=== PATIENT | female | born 1985 | race Caucasian/White ===

== ENCOUNTER 2019-07-13 07:03 | Day surgery (SDC) | payer OTHER, BC ==
[~2019-07-13 07:03] MED LIST: Lactated Ringers 1,000 ML IV SCH
[2019-07-13] MEDS ORDERED: Versed 2 MG/2 ML Injection ONE (09:11)
[2019-07-13] MEDS ORDERED: DIPRIVAN 200 MG/20 ML IV ONE ×3 (09:11→09:26)
[2019-07-13] MEDS ORDERED: Lactated Ringers 1,000 ML IV ONE (09:20)
[2019-07-13 12:06] VITALS: BP 137/72; PULSE 92; O2SAT 99
[2019-07-13 13:31] LABS: 027 TOX PROD PRESUMPTIVE NEGATIVE (NEGATIVE); TOXIGENIC C. DIFF ORG NEGATIVE (NEGATIVE)
[2019-07-14 12:06] LABS: Source: Feces
[2019-07-14 12:08] LABS: Giardia Antigen EIA Negative (Negative)
--- NOTE | 2019-07-17 09:26 | OP ---
PROCEDURE DATE/TIME: 07/13/2019 0900 PREOPERATIVE DIAGNOSIS: Abdominal pain and change in bowel function. POSTOPERATIVE DIAGNOSES: 1) Mild gastritis. 2) Descending colon and sigmoid colon colitis. PROCEDURES: 1) EGD with biopsy. 2) Colonoscopy with cold forceps polypectomy in the rectum and multiple cold biopsies throughout the colon and rectum. PROCEDURE PERFORMED BY: Janeth Mcclendon M.D. ANESTHESIA: MAC. ESTIMATED BLOOD LOSS: Minimal. COMPLICATIONS: None. SPECIMENS: 1) Duodenal biopsy; rule out celiac disease. 2) Antral biopsy; rule out Helicobacter pylori. 3) Normal terminal ileum. 4) Normal appearing ascending colon. 5) Normal appearing transverse colon. 6) Descending colon colitis biopsies. 7) Rectal biopsy and rectal polyp biopsy. FINDINGS: Continuous colitis involving the sigmoid colon starting at about 30 cm up to 50 cm which is mild and then at 50 to65 cm there is more severe colitis with obvious ulceration and inflammation encompassing at least half of the circumference of the colon with significant inflammation and remaining and the remainder of the colon with inflammatory changes that are milder circumferentially. There is no rectal, perirectal or anal involvement. HISTORY: This is a patient who presents with abdominal pain and change in her bowel function. Risks, benefits, alternatives regarding EGD and colonoscopy have been discussed with her. H&P, consent reviewed with her and confirmed. DESCRIPTION OF PROCEDURE: She was then brought back to the endoscopy suite. Anesthesia induced. Laid in the left lateral decubitus position. The scope gently introduced into the mouth, oropharynx down to her esophagus, stomach and duodenum. The patient had very minimal gastritis in her stomach. As we advanced the scope further due to her abdominal pain in her epigastric and upper abdomen as well as pain with eating and her bloating symptoms, I did do biopsies to rule out celiac disease in the duodenum. All sites were hemostatic after biopsy. I withdrew the scope to the stomach. I took an antral biopsy to rule out Helicobacter pylori disease. We confirmed hemostasis. The remainder of the stomach looked normal except for very minimal gastritis. There was no obvious significant hiatal hernia and then the scope was carefully withdrawn. The esophagus was normal. There was no Lopez's disease. The scope completely removed. The patient was then repositioned for colonoscopy. We first did a rectal exam. The patient's perirectal area and anal canal are normal. The scope was inserted and gently advanced. The rectum was normal. Her distal sigmoid was normal. At approximately 30 cm she started having mild inflammation in her sigmoid colon, this mild inflammation continued from 30 to 50 cm. At 50 cm the inflammation looked the inflammation was significantly more severe with obvious ulceration, significant inflammation. The severe inflammation encompassed about 50% of the colon and then the remainder of the circumference of the colon did have further inflammation, this inflammation lasted up to about 65 cm and then proximal to 65 cm the colon was normal. The transverse and ascending colon were absolutely normal. The ileocecal valve and appendiceal orifice were visualized and these were normal. The ileocecal valve intubated. The immediate 10 cm of the terminal ileum were normal. The scope was then carefully withdrawn taking a circumferential view. Due to her findings of inflammation, I then did biopsies to check for inflammatory bowel disease and we did these biopsies using cold forceps of the terminal ileum, ascending colon and transverse colon and then as we approached the descending and sigmoid colon, I took multiple biopsies at the sites of inflammation. We then took biopsies in a normal rectum as well. There was one very small benign appearing rectal polyp this was taken with cold forceps and the site was hemostatic. All biopsy sites were hemostatic and then the scope was able to be completely removed. The patient tolerated the procedure well. The patient tolerated the procedure very well. There were no immediate complications. I have discussed all of the findings with her as well as with her family in the postoperative area. She is going to be following up with me as an outpatient for all of her biopsy results. I have also discussed her case with Dr. Crespo from GI. She is going to be set up with an appointment with Dr. Crespo as an outpatient due to the high concern for inflammatory bowel disease.
== END 2019-07-13 11:20 | disposition home or self-care (01) ==
LOC: SDC 07:03
PROVIDERS: ATTEND Surgery
DX: K29.70 Gastritis, unspecified, without bleeding (principal); K52.9 Noninfective gastroenteritis and colitis, unspecified; R19.4 Change in bowel habit; I10 Essential (primary) hypertension
CPT/HCPCS: 36415; 84703; 87045; 87046; 87177; 87209; 87335; 87493; 88305; J2250; J2704

== ENCOUNTER 2020-04-05 21:09 | Emergency (ER) | payer BC ==
[2020-04-05] MEDS ORDERED: solu-MEDROL 40 MG IV ONE (21:18)
[2020-04-05] MEDS ORDERED: BENADRYL 50 MG/ML IV ONE (21:18)
[2020-04-05] MEDS ORDERED: Sodium Chloride 0.9% 1000 ML 1,000 ML ONE (21:20)
[2020-04-05] MEDS ORDERED: BENADRYL 50 MG/ML ONE (21:20)
[2020-04-05] MEDS ORDERED: solu-MEDROL 125 MG ONE (21:23)
[2020-04-05] MEDS ORDERED: Sodium Chloride 0.9% 1000 ML 1,000 ML IV SCH (21:30)
[2020-04-05 21:31] LABS: Absolute Neutrophil Ct (ANC) 1.82 (1.4-6.9); BASOPHIL % 0.2 % (0.0-0.4); Basophil (Absolute #) 0.01 (0-0.4); Eosinophil % 0.8 % (0.00-5.0); Eosinophil (Absolute #) 0.04 (0-0.5); Hematocrit 41.5 % (35-47); Hemoglobin 14.4 gm/dl (12.0-16.0); Lymphocyte (Absolute #) 3.01 (1.0-4.6); Lymphocytes % 58.4 % (24.0-44.0); Mean Cell Volume 85.2 fl (78-100); Mean Corpuscular Hemoglobin 29.6 pg (26-32); Mean Corpuscular Hgb Concent. 34.7 g/dl (32-36); Mean Platelet Volume 10.3 fl (7.5-11.0); Monocyte (Absolute #) 0.27 (0.0-1.3); Monocytes % 5.2 % (0.0-12.0); Neutrophil % 35.4 % (36.0-66.0); Platelet Count 236 K/mm3 (150-450); Red Blood Count 4.87 M/mm3 (4.1-5.4); Red Cell Distribution Width 13.2 % (11.5-14.0); White Blood Count 5.2 K/mm3 (4.0-10.5)
--- NOTE | 2020-04-05 21:33 | ERPHSYRPT ---
- History of Present Illness Time Seen by Provider: 04/05/20 21:27 Historian: patient, family, other (dr grubbs) Exam Limitations: no limitations Patient Subjective Stated Complaint: pt states she has been having chest pain and shortness of breath since this morning. states her pmd wansts to rule out pe because she has a hx Triage Nursing Assessment: pt alert and oriented, answers question approp. pt ambulatory with steady gait noted. skin warm and dry. respirations nonlabored, pt short of breath with exertion. Physician History: pt has hx PE 3 yr ago and is now off AC;having CP today and had elevated d dimer and dr grubbs called to have eval in ER; no hx cardiac prior; no known DVT or calf symptoms; tubes have been removed, so no indication for HCG; pt tolerates dye well in past with pretreat benadryl and solumedrol. no other symptoms or concerns. . Timing/Duration: today Activities at Onset: none Quality: sharpness Location: central Chest Pain Radiation: no radiation Severity of Pain-Max: moderate Severity of Pain-Current: moderate Modifying Factors: Improves With: nothing Associated Symptoms: shortness of breath Prior Chest Pain/Cardiac Workup: pulmonary embolism Nitro Today/Relief: no nitro taken today Aspirin Treatment Today: 81 mg x 4, provided by ED Allergies/Adverse Reactions: ondansetron [From Zofran] Allergy (Intermediate, Verified 06/27/19 15:19) Rash iv contrast dye Allergy (Intermediate, Uncoded 06/27/19 15:19) Swelling Home Medications: Ergocalciferol (Vitamin D2) [Vitamin D2] 50,000 unit PO Q7D 06/27/19 [History] Lisinopril 5 mg [Zestril 5 MG] 5 mg PO DAILY 06/27/19 [History] Omeprazole 20 mg PO DAILY 06/27/19 [History] Bupropion HCl Xl 150 mg [Wellbutrin XL 150 MG] 1 tab PO DAILY 07/13/19 [History] Hx Tetanus, Diphtheria Vaccination/Date Given: Yes Hx Influenza Vaccination/Date Given: Yes Hx Pneumococcal Vaccination/Date Given: No Immunizations Up to Date: Yes Travel Risk - International Travel Have you traveled outside of the country in past 3 weeks: No - Coronavirus Screening Are you exhibiting any of the following symptoms?: No Symptoms: Shortness of Breath Close contact with a COVID-19 positive Pt in past 14-21 Days: Yes - Review of Systems Constitutional: No Fever, No Chills Eyes: No Symptoms Ears, Nose, & Throat: No Symptoms Respiratory: Dyspnea, No Cough Cardiac: No Chest Pain, No Edema, No Syncope Abdominal/Gastrointestinal: No Abdominal Pain, No Nausea, No Vomiting, No Diarrhea Genitourinary Symptoms: No Dysuria Musculoskeletal: No Back Pain, No Neck Pain Skin: No Rash Neurological: No Dizziness, No Focal Weakness, No Sensory Changes Psychological: No Symptoms Endocrine: No Symptoms Hematologic/Lymphatic: No Symptoms Immunological/Allergic: No Symptoms All Other Systems: Reviewed and Negative - Past Medical History Pertinent Past Medical History: Yes Neurological History: No Pertinent History ENT History: No Pertinent History Cardiac History: Other Respiratory History: Pulmonary Embolism Endocrine Medical History: No Pertinent History Musculoskeletal History: No Pertinent History GI Medical History: No Pertinent History History: No Pertinent History Psycho-Social History: No Pertinent History Female Reproductive Disorders: No Pertinent History Other Medical History: PE was a post complication had SVT in 2008 was on Toprol for it for short time and then discontined the med and has had no problems since. hx of ischemic colitis vs ulcerative colitis. ef for gb low. pleurisy. svt - Past Surgical History Past Surgical History: Yes Neuro Surgical History: No Pertinent History Cardiac: No Pertinent History Respiratory: No Pertinent History Gastrointestinal: No Pertinent History Genitourinary: No Pertinent History Musculoskeletal: No Pertinent History Female Surgical History: Dilation & Curettage, Section Other Surgical History: wisdom teeths extracted - Social History Smoking Status: Never smoker Exposure to second hand smoke: No Drug Use: none Patient Lives Alone: No - Female History Hx Last Menstrual Period: last week Hx Now: (unknown) - Nursing Vital Signs Nursing Vital Signs: Initial Vital Signs Temperature 97.8 F 04/05/20 21:13 Pulse Rate 88 04/05/20 21:13 Respiratory Rate 18 04/05/20 21:13 Blood Pressure 141/96 04/05/20 21:13 O2 Sat by Pulse Oximetry 98 04/05/20 21:13 Pain Scale Pain Intensity 4 - Physical Exam General Appearance: no apparent distress, alert Eye Exam: PERRL/EOMI, eyes nml inspection Ears, Nose, Throat Exam: normal ENT inspection, moist mucous membranes Neck Exam: normal inspection, non-tender, supple, full range of motion Respiratory Exam: normal breath sounds, lungs clear, No respiratory distress Cardiovascular Exam: regular rate/rhythm, normal heart sounds Gastrointestinal/Abdomen Exam: soft, No tenderness, No mass Back Exam: normal inspection, No CVA tenderness, No vertebral tenderness Extremity Exam: normal inspection, normal range of motion Neurologic Exam: alert, oriented x 3, cooperative, normal mood/affect, sensation nml, No motor deficits Skin Exam: normal color, warm, dry SpO2: 98 - Course Nursing assessment & vital signs reviewed: Yes EKG Interpreted by Me: Sinus Rhythm, NORMAL AXIS, NORMAL INTERVALS, Non-specific ST Changes - CT Exams Chest CT Interpretation: Tele-radiologist Report, No PE, Other (patchy infiltrates) Ordered Tests: Active Orders 24 hr Category Date Time Status EKG-ER Only STAT Care 04/05/20 21:17 Active IV Insertion STAT Care 04/05/20 21:17 Active CHEST WITH CONTRAST [CT] Stat Exams 04/05/20 21:15 Taken CBC W DIFF Stat Lab 04/05/20 21:20 Completed CMP Stat Lab 04/05/20 21:20 Completed LIPASE Stat Lab 04/05/20 21:20 Completed TROPONIN Q3H Lab 04/05/20 21:20 Completed TROPONIN Q3H Lab 04/06/20 00:30 Ordered TROPONIN Q3H Lab 04/06/20 03:30 Ordered TROPONIN Q3H Lab 04/06/20 06:30 Ordered TROPONIN Q3H Lab 04/06/20 09:30 Ordered Medication Summary Generic Name Dose Route Start Last Admin Trade Name Freq PRN Reason Stop Dose Admin Sodium Chloride 1,000 mls @ 100 mls/hr 04/05/20 21:30 04/05/20 21:24 Sodium Chloride 0.9% 1000 Ml IV 05/05/20 21:29 100 mls/hr .Q10H ROS Administration Discontinued Medications Generic Name Dose Route Start Last Admin Trade Name Freq PRN Reason Stop Dose Admin Diphenhydramine HCl 25 mg 04/05/20 21:18 04/05/20 21:25 Benadryl 50 Mg/Ml IV 04/05/20 21:19 25 mg STAT ONE Administration Diphenhydramine HCl Confirm 04/05/20 21:20 Benadryl 50 Mg/Ml Administered 04/05/20 21:21 Dose 50 mg .ROUTE .STK-MED ONE Methylprednisolone Sodium Succinate 40 mg 04/05/20 21:18 04/05/20 21:26 Solu-Medrol 40 Mg IV 04/05/20 21:19 40 mg STAT ONE Administration Methylprednisolone Sodium Succinate Confirm 04/05/20 21:23 Solu-Medrol 125 Mg Administered 04/05/20 21:24 Dose 125 mg .ROUTE .STK-MED ONE Lab/Rad Data: Laboratory Result Diagrams 04/05/20 21:20 04/05/20 21:20 Laboratory Results 04/05/20 04/05/20 04/05/20 Range/Units 21:20 21:20 21:20 WBC 5.2 (4.0-10.5) K/mm3 RBC 4.87 (4.1-5.4) M/mm3 Hgb 14.4 (12.0-16.0) gm/dl Hct 41.5 (35-47) % MCV 85.2 (78-100) fl MCH 29.6 (26-32) pg MCHC 34.7 (32-36) g/dl RDW 13.2 (11.5-14.0) % Plt Count 236 (150-450) K/mm3 MPV 10.3 (7.5-11.0) fl Gran % 35.4 L (36.0-66.0) % Eos # (Auto) 0.04 (0-0.5) Absolute Lymphs (auto) 3.01 (1.0-4.6) Absolute Monos (auto) 0.27 (0.0-1.3) Lymphocytes % 58.4 H (24.0-44.0) % Monocytes % 5.2 (0.0-12.0) % Eosinophils % 0.8 (0.00-5.0) % Basophils % 0.2 (0.0-0.4) % Absolute Granulocytes 1.82 (1.4-6.9) Basophils # 0.01 (0-0.4) Sodium 139 (137-145) mmol/L Potassium 3.5 (3.5-5.1) mmol/L Chloride 104 (98-107) mmol/L Carbon Dioxide 29 (22-30) mmol/L Anion Gap 9.6 (5-15) MEQ/L BUN 11 (7-17) mg/dL Creatinine 0.74 (0.52-1.04) mg/dL Estimated GFR > 60.0 ML/MIN Glucose 100 (74-106) mg/dL Calcium 9.1 (8.4-10.2) mg/dL Total Bilirubin 0.30 (0.2-1.3) mg/dL AST 30 (14-36) U/L ALT 30 (0-35) U/L Alkaline Phosphatase 106 (38-126) U/L Troponin I < 0.012 (0.000-0.034) ng/mL Serum Total Protein 7.3 (6.3-8.2) g/dL Albumin 4.3 (3.5-5.0) g/dL Lipase 59 (23-300) U/L - Progress Progress: improved, re-examined Air Movement: good Progress Note: 04/05/20 21:39 discussed risk and benefit of CT PE prot and also with allergy to dye and pt wishes to proceed, and has toney dye with the benadryl and steroid before. 04/06/20 00:18 pt has cardiac score at 3 or less and has neg trop first run. discussed limitations of testing and she prefers outpt f/u which is reasonable with this score and findings and has capacity to make this choice. Pt also does not wish covid test as is already in SQ for symptoms and will complete that course, and has good RA pulse Ox and not sobreath and will f/u PCP with our CT result for f/u. Blood Culture(s) Obtained: No Antibiotics given: No Discussed with .: Tawnya Will see patient in: office Counseled pt/family regarding: lab results, diagnosis, need for follow-up, rad results - Departure Departure Disposition: Home Clinical Impression: Pulmonary infiltrates on CXR, viral pneumonia consistent with covid Condition: Good Critical Care Time: No Referrals: SONYA GRUBBS MD [Primary Care Provider] - Instructions: Coronavirus Disease 2019 (COVID-19) ([place]) Additional Instructions: we are providing [facility] instructions since some of the findings on CT could be consistent with that and you are currently already in a self Quarantine for those concerns - followup with your DR for CT findings and return meantime if any concerns. although you are at low risk for cardiac and had initial negative tests , there remains some possibility - so followup with your Dr and return meantime if any concerns.
[2020-04-05 21:45] LABS: ALBUMIN 4.3 g/dL (3.5-5.0); ALKALINE PHOSPHATASE 106 U/L (38-126); ANION GAP 9.6 MEQ/L (5-15); BLOOD UREA NITROGEN 11 mg/dL (7-17); CHLORIDE 104 mmol/L (98-107); Calcium 9.1 mg/dL (8.4-10.2); Carbon Dioxide 29 mmol/L (22-30); Creatinine 1 0.74 mg/dL (0.52-1.04); EST GLOMERULAR FILTRATION RATE > 60.0 ML/MIN; Glucose 100 mg/dL (74-106); LIPASE 59 U/L (23-300); Potassium 3.5 mmol/L (3.5-5.1); SGOT/AST 30 U/L (14-36); SGPT/ALT 30 U/L (0-35); SODIUM 139 mmol/L (137-145); Total Protein 7.3 g/dL (6.3-8.2)
[2020-04-06 00:21] VITALS: O2SAT 98
[2020-04-06 00:42] VITALS: BP 134/81; PULSE 86
--- NOTE | 2020-04-06 07:56 | XRAY ---
Indication: Chest pain and shortness breath. Elevated d-dimer. Multiple contiguous axial images obtained through the chest using 80 cc Isovue-370 contrast and PE protocol. Known iodine allergy. Patient was premedicated with 40 mg Solu-Medrol and [address] scan was performed uneventfully. Comparison: None. There is good opacification of the pulmonary arteries to include the lobar and segmental branches. No pulmonary embolus. Heart is not enlarged. Aorta is normal in course and caliber. No pathologic mediastinal/hilar lymphadenopathy. Lungs are inflated and demonstrates mild diffuse peripheral patchy airspace disease bilaterally. No effusion. Bony thorax intact. Limited upper abdomen fatty liver and 13.5 cm splenomegaly. Impression: 1. Negative pulmonary embolus. 2. Diffuse bilateral peripheral airspace disease. 3. Incidental fatty liver and splenomegaly Comment: Preliminary interpretation was made by [facility]. No critical discrepancy.
== END 2020-04-06 00:42 | disposition home or self-care (01) ==
LOC: ED 21:09
DX: R19.8 Other specified symptoms and signs involving the digestive system and abdomen (principal); U07.1 COVID-19; J12.89 Other viral pneumonia
CPT/HCPCS: 36000; 36415; 71260; 80053; 83690; 84484; 85025; 85379; 93005; 96374; 96375; 99284; J1200; J2920; J2930